=== PATIENT | male | born 1990 | race American Indian/Alaskan Native ===

== ENCOUNTER 2020-12-31 19:26 | Emergency (ER) | payer SELFPAY ==
--- NOTE | 2020-12-31 20:42 | XRay Report ---
CHEST 1 VIEW 12/31/2020 7:27 PM INDICATION / CLINICAL INFORMATION: Altered Mental Status. COMPARISON: 09/21/2020 FINDINGS: SUPPORT DEVICES: None. HEART / MEDIASTINUM: No significant abnormality. LUNGS / PLEURA: No significant pulmonary or pleural abnormality. No pneumothorax. ADDITIONAL FINDINGS: No significant additional findings. IMPRESSION: 1. No acute findings. Signer Name: Chris Reyna MD Signed: 12/31/2020 8:38 PM Workstation Name: [email or web address]
[2020-12-31 20:45] LABS: Basophils % (Auto) 0.1 % (0.0-1.8); Hematocrit 39.3 % (35.5-45.6); Lymphocytes % (Auto) 7.8 % (13.4-35.0); Mean Corpuscular HGB Conc 33 % (32-34); Mean Corpuscular Volume 93 fl (84-94); Monocytes # (Auto) 0.8 K/mm3 (0.0-0.8); Monocytes % (Auto) 6.3 % (0.0-7.3); Platelet Count 195 K/mm3 (140-440); Red Blood Count 4.22 M/mm3 (3.65-5.03); Red Cell Distribution Width 14.2 % (13.2-15.2)
[2020-12-31 20:56] LABS: INR 1.07 (0.87-1.13); Partial Thromboplastin Time 29.5 Sec. (24.2-36.6)
[2020-12-31 21:05] LABS: Bacteria,Urine 1+ /HPF (Negative); Bilirubin,Urine NEG (Negative); Blood,Urine NEG (Negative); Color,Urine Amber (Yellow); Mucus,Urine 2+ /HPF
[2020-12-31 21:07] LABS: Albumin 4.7 g/dL (3.9-5); Calcium 9.1 mg/dL (8.4-10.2)
[2020-12-31 21:12] LABS: Methadone Screen,Urine Negative; Opiate Screen,Urine Negative
--- NOTE | 2020-12-31 21:15 | Cat Scan Report ---
CT head/brain wo con INDICATION / CLINICAL INFORMATION: 89 years Male; Altered Mental Status. TECHNIQUE: Routine CT head without contrast. All CT scans at this location are performed using CT dos e reduction for ALARA by means of automated exposure control. COMPARISON: 09/21/2020 FINDINGS: BRAIN / INTRACRANIAL CONTENTS: No acute hemorrhage, mass effect, midline shift, hydrocephalus, or acu te, large territorial infarct. No signs of significant atrophy or chronic infarct. No significant whi te matter abnormality seen. CRANIOCERVICAL JUNCTION: No significant abnormality. ORBITS: No significant abnormality of visualized orbits. SINUSES / MASTOIDS: Prior surgery suggested. Left middle turbinate gertrude bullosa noted. There is mil d rightward nasal septum deviation. ADDITIONAL FINDINGS: There may be subcutaneous soft tissue swelling in the upper lip region leftward of midline, related to periodontal disease associated with the medial incisor along the left maxillar y alveolar ridge. IMPRESSION: 1. No focal mass, hemorrhage, hydrocephalus, or acute, large territorial infarct. 2. Soft tissue swelling in the left upper lip region as described above. Please clinically correlate. Signer Name: Fadi Sharma MD, III Signed: 12/31/2020 9:11 PM Workstation Name: [email or web address]
[2020-12-31 21:24] LABS: Amphetamine Screen,Urine Positive; Benzodiazepines Screen,Urine Positive; Cannabinoid Screen,Urine Positive; Cocaine Screen,Urine Positive
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
[2021-01-01] MEDS ORDERED: AMMONIA INHALANT IH ONE (00:36)
[2021-01-01 01:18] VITALS: BP 123/70
== END 2021-01-01 01:00 | disposition home or self-care (01) ==
LOC: EDBD 19:26 → ED 19:26
DX: R45.1 Restlessness and agitation (principal); R41.82 Altered mental status, unspecified; F19.10 Other psychoactive substance abuse, uncomplicated
CPT/HCPCS: 36415; 70450; 71045; 80053; 80307; 80320; 81001; 82140; 82962; 85025; 85610; 85730; G0480